=== PATIENT | male | born 1985 | race Caucasian/White ===

== ENCOUNTER 2025-01-26 07:04 | Emergency (ER) | payer BC ==
[~2025-01-26] VITALS: Ht 187.9 cm; Wt 120.2 kg
[2025-01-26] MEDS ORDERED: NITROGLYCERIN 0.4 MG BOT SL ONE (07:30)
[2025-01-26] MEDS ORDERED: SODIUM CHLORIDE 0.9% 100 ML BAG IV ONE (07:30)
[2025-01-26] MEDS ORDERED: IOHEXOL 350 MG/ML 100 ML VIAL IV ONE ×2 (07:30→07:54)
[2025-01-26 07:36] LABS: BASO # 0.0 10*3/uL (0.0-0.1); BASO % 0.2 % (0.0-1.0); EOS # 0.1 10*3/uL (0.0-0.4); EOS % 2.0 % (1.0-4.0); MEAN CELL VOLUME 83.1 fl (80.0-94.0); MEAN CORPUSCULAR HGB 28.0 pg (27.0-31.0); MEAN PLATELET VOLUME 8.8 fl (9.6-12.3); MONO # 0.4 10*3/uL (0.1-1.0); MONO % 7.9 % (3.0-9.0); NEUT # 2.9 10*3/uL (2.3-7.9); NEUT % 58.2 % (47.0-73.0); NUCLEATED RED BLOOD CELL 0.0 % (0.0-0.0); NUCLEATED RED BLOOD CELL 0.0 10*3/uL (0.0-0.0); PLATELET COUNT AUTOMATED 225 10*3/uL (130-400); RED CELL DISTRI WIDTH 13.2 % (0-14.5)
[2025-01-26] MEDS ORDERED: SODIUM CHLORIDE 0.9% 100 ML IV ONE (07:54)
[2025-01-26 07:56] LABS: BUN 17 mg/dl (9-23); SGPT/ALT 33 U/L (5-49)
[2025-01-26] MEDS ORDERED: HYDROmorphONE Hydrochloride 0.5 MG/0.5 ML SYRINGE IV ONE (10:45)
[2025-01-26] MEDS ORDERED: METHOCARBAMOL750 M1 PO (10:49)
[2025-01-26] MEDS ORDERED: PREDNISONE20 M1 PO (10:49)
[2025-01-26] MEDS ORDERED: GABARONE100 M1 PO (10:49)
== END 2025-01-26 10:59 | disposition home or self-care (01) ==
LOC: ED 07:04
PROVIDERS: Emergency Medicine
DX: R07.89 Other chest pain (principal); M54.12 Radiculopathy, cervical region; Z88.5 Allergy status to narcotic agent